=== PATIENT | male | born 1975 | race Caucasian/White ===

== ENCOUNTER 2016-10-14 08:54 | Emergency (ER) | payer OTHER ==
[2016-10-14 09:26] VITALS: TEMP 98.4
--- NOTE | 2016-10-14 09:38 | UCPHY ---
H & P Time Seen by Provider: 10/14/16 09:21 Patient Type: Established HPI/ROS: Chief complaint. Finger laceration HPI. 41-year-old male working on his band this morning wearing gloves and hit his right pinky finger against a piece of machinery while working on the band. He sustained laceration to the dorsum of the right pinky finger. Denies focal weakness paresthesias. No sense of retained foreign body. Patient is right hand ROS Constitutional. no fever/chills, no weakness Eyes. no problems with vision ENT. no sore throat, no nasal drainage Cardiovascular. no chest pain Respiratory. no shortness of breath, no cough Abdominal. no abdominal pain, no nausea/vomiting, no diarrhea . no problems urinating MS. no calf pain/swelling, no neck/back pain, no joint pain Skin. Laceration right pinky finger Lymph. no swollen glands Neuro. no headache, no dizziness, no difficulty walking or with speech Past Medical/Surgical History: Healthy Social History: , nonsmoker, no alcohol Smoking Status: Never smoked Physical Exam: General Appearance: Alert pleasant well-developed male mild distress vital signs stable Eyes: Pupils equal and round no pallor or injection. ENT, Mouth: Mucous membranes are moist. Respiratory: There are no retractions, lungs are clear to auscultation. Cardiovascular: Regular rate and rhythm. Gastrointestinal: Abdomen is soft and nontender, no masses, bowel sounds normal. Neurological: Awake and alert, sensory and motor exams grossly normal. Skin: Warm and dry, no rashes. Musculoskeletal: Neck is supple nontender. Extremities 1.5 cm curvilinear laceration to the dorsum of the right 5th digit overlying the PIP joint. Distal motor vascular sensitivity intact Psychiatric: Patient is oriented X 3, there is no agitation. Constitutional: Initial Vital Signs Temperature (C) 36.9 C 10/14/16 09:22 Heart Rate 68 10/14/16 09:22 Respiratory Rate 18 10/14/16 09:22 Blood Pressure 123/86 H 10/14/16 09:22 O2 Sat (%) 95 10/14/16 09:22 O2 Delivery Mode Room Air Allergies/Adverse Reactions: No Known Allergies Allergy (Verified 10/14/16 09:22) Home Medications: Medication Instructions Recorded Aspirin 325 mg (OTC) 11/10/14 MDM/Departure - MDM Procedures: Procedure: Laceration repair. Verbal consent was obtained from the patient. The 1.5 cm laceration on the right 5th finger was anesthetized in the usual fashion. The wound was irrigated , draped and explored to its base with a gloved finger. There were no deep structures involved. No tendon injury was identified. The wound was repaired with five 5-0 prolene sutures. The wound repair was simple. The procedure was performed by myself. ED Course/Re-evaluation: Patient remains stable. On re-evaluation the patient and I discussed treatment plan, criteria for return importance of follow-up further evaluation. He expresses understanding and agreement Differential Diagnosis: I considered laceration, infection potential, tendon injury, retained foreign body - Depart Disposition: Home, Routine, Self-Care Clinical Impression: Finger laceration Qualifiers: Encounter type: initial encounter Qualified Code(s): S61.219A - Laceration without foreign body of unspecified finger without damage to nail, initial encounter Condition: Good Instructions: Care For Your Stitches (ED) Additional Instructions: Keep the cut clean and dry. You may shower and wash your hands with stitches in. Return for signs of infection. Stitches out 10 days Referrals: Augusto Rodrigues MD [Primary Care Provider] - As per Instructions - PQRS PQRS Measurement: 134: Depression screening and followup, PRIME MD-PHQ2 (12 years and older) Over the last 2 weeks, how often have you been bothered by any of the following problems? 1. Feeling down, depressed, or hopeless? 2. Little interest or pleasure in doing things? Patient answered no to both 1 and 2 130: Documentation of medications. Reviewed all patient medications, doses, route and frequency. 226: Do you smoke? No.
[2016-10-14 10:38] VITALS: BP 127/88; PULSE 85; RESP 16; O2SAT 97
== END 2016-10-14 10:28 | disposition home or self-care (01) ==
LOC: CED 08:54
PROC: 0HQFXZZ Repair Right Hand Skin, External Approach (ICD-10-PCS; principal; 2016-10-14)
DX: S61.216A Laceration without foreign body of right little finger without damage to nail, initial encounter (principal); W31.9XXA Contact with unspecified machinery, initial encounter
CPT/HCPCS: 12001-PO; 99213-PO; G0463-PO